=== PATIENT | male | born 2005 | race Caucasian/White ===

== ENCOUNTER 2025-08-08 16:38 | Emergency (ER) | payer BC ==
[~2025-08-08 16:38] MED LIST: Iopamidol-370 76% 500 ML MDV (1 ML CHARGE) ONE
[2025-08-08 17:11] LABS: #Basophils 0.04 10x3/uL (0.0-0.2); #Eosinophils 0.32 10x3/uL (0.0-0.7); #Monocytes 0.80 10x3/uL (0.11-0.59); #Neutrophils 6.48 10x3/uL (1.40-6.50); %Basophils 0.4 % (0.0-1.0); %Eosinophils 2.8 % (0.0-10.0); %Lymphocytes 32.3 % (28.0-48.0); %Monocytes 7.0 % (0.0-4.0); %Neutrophils 56.8 % (31.0-61.0); Hematocrit 39.7 % (42.0-52.0); Hemoglobin 12.2 g/dL (14.0-18.0); Mean Corpuscular Hemoglobin 19.7 pg (25.0-35.0); Mean Corpuscular Volume 64.1 fL (78.0-98.0); Platelet Count 289 10x3/uL (130-400); Red Blood Cell (RBC) Count 6.19 mill/uL (4.00-5.20); Reflex for Review?? YES; White Blood Cell (WBC) Count 11.40 10x3/uL (4.8-10.8)
[2025-08-08 17:12] LABS: INR-International Normal Ratio 1.0; Prothrombin Time 13.3 sec (12.0-14.7)
[2025-08-08 17:13] LABS: PTT 27.6 sec (22.9-36.1)
[2025-08-08 17:24] LABS: ALT (SGPT) 34 U/L (Less than 45); AST (SGOT) 43 U/L (11-34); Albumin 4.2 g/dL (3.1-4.5); Alkaline Phosphatase 104 U/L (50-130); Anion Gap 12 mmol/L (10-20); BUN (Urea Nitrogen) 15 mg/dL (8.9-20.6); Bilirubin, Total 0.4 mg/dL (0.3-1.2); Calc. Creatinine Clearance 0 mL/min (70-130); Calcium 9.7 mg/dL (7.8-10.44); Carbon Dioxide 28 mmol/L (22-29); Chloride 105 mmol/L (98-107); Globulin 2.9 g/dL (2.4-3.5); Glucose 110 mg/dL (70-105); Potassium 3.6 mmol/L (3.5-5.1); Sodium 141 mmol/L (136-145)
[2025-08-08 17:29] LABS: Anisocytosis SLIGHT = 6-15 cells HPF (0-5); Burr Cells SLIGHT = 2-5 cells HPF (0-1); Platelet Adequacy Comment Platelets Normal; Polychromasia SLIGHT = 2-3 cells HPF (0-2); Target Cells SLIGHT = 2-5 cells HPF (0-1)
[2025-08-08 17:33] LABS: Microcytosis MODERATE=15-30 cells (100X) (0-5/hpf)
== END 2025-08-08 20:03 | disposition home or self-care (01) ==
LOC: ERS 16:38
DX: S93.401A Sprain of unspecified ligament of right ankle, initial encounter (principal); S27.322A Contusion of lung, bilateral, initial encounter; S80.212A Abrasion, left knee, initial encounter; S80.211A Abrasion, right knee, initial encounter; S90.415A Abrasion, left lesser toe(s), initial encounter; S90.414A Abrasion, right lesser toe(s), initial encounter; S30.81AA Abrasion of flank, initial encounter; S30.810A Abrasion of lower back and pelvis, initial encounter; V18.2XXA Unspecified pedal cyclist injured in noncollision transport accident in nontraffic accident, initial encounter
CPT/HCPCS: 71045; 71260; 74177; 80053; 85025; 85060; 85610; 85730; 96374; G0390; J3010; Q9967